=== PATIENT | male | born 1965 | race Caucasian/White ===

== ENCOUNTER 2017-09-27 20:38 | Emergency (ER) | payer OTHER ==
[~2017-09-27] VITALS: Ht 180.3 cm; Wt 101.7 kg
[2017-09-27 20:39] VITALS: BP 142/115
== END 2017-09-27 23:23 | disposition home or self-care (01) ==
LOC: EME 20:38
DX: M79.605 Pain in left leg (principal)
CPT/HCPCS: 73610; 93971; 99281; 99283